=== PATIENT | male | born 2000 | race Hispanic/Latino ===

== ENCOUNTER 2020-07-11 23:25 | Emergency (ER) | payer OTHER ==
[~2020-07-11] VITALS: Ht 172.7 cm; Wt 90.9 kg
[2020-07-12] MEDS ORDERED: LIDOCAINE 2% MDV 20ML VIAL SC ONE (00:30)
[2020-07-12] MEDS ORDERED: AMPICILLIN SOD/SULBACTAM SOD 3 GM in D5W MINI-BAG PLUS 100 ML IV ONE (00:30)
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
[2020-07-12] MEDS ORDERED: KEFL500C17 PO (01:38)
[2020-07-12 01:57] VITALS: BP 113/68
== END 2020-07-12 02:00 | disposition home or self-care (01) ==
LOC: M ED 23:25
DX: S66.121A Laceration of flexor muscle, fascia and tendon of left index finger at wrist and hand level, initial encounter (principal); W26.0XXA Contact with knife, initial encounter; Y92.099 Unspecified place in other non-institutional residence as the place of occurrence of the external cause; Y93.G1 Activity, food preparation and clean up; Y99.9 Unspecified external cause status; F17.200 Nicotine dependence, unspecified, uncomplicated

== ENCOUNTER → 2023-12-21 | Outpatient (CLI) | payer BC ==
[~2023-12-21] MED LIST: KEFL500C17 PO
== END ==
LOC: M RAD 10:38
PROVIDERS: ATTEND Physician Assistant
DX: R07.81 Pleurodynia (principal)